=== PATIENT | male | born 1995 | race American Indian/Alaskan Native ===

== ENCOUNTER 2019-12-31 23:02 | Emergency (ER) | payer SELFPAY ==
[2019-12-31] MEDS ORDERED: MORPHINE 4 MG/ML SYR ONE (23:48)
[2019-12-31] MEDS ORDERED: TETANUS & DIPHTHERIA TOX,ADULT 0.5 ML VIAL ONE (23:49)
[2019-12-31] MEDS ORDERED: ONDANSETRON 4 MG/2 ML VIAL ONE (23:49)
[2020-01-01] MEDS ORDERED: NS 0.9% VIAL 10 ML ONE (01:13)
[2020-01-01] MEDS ORDERED: CEFAZOLIN SODIUM 1 GM/VIAL ONE (01:13)
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
[2020-01-01] MEDS ORDERED: IBUPROFEN 400 MG TAB ONE (01:30)
[2020-01-01 02:28] VITALS: BP 144/92; TEMP 98.9; O2SAT 95
--- NOTE | 2020-01-01 11:50 | RAD REPORT ---
EXAM DESCRIPTION: RAD -Hand Left 3 View - 01/01/2020 12:06 am CLINICAL HISTORY: Left hand pain status post injury FINDINGS: Comminuted mildly displaced fractures involve the second and third proximal phalanges. The second proximal phalanx fracture extends intraarticularly. Nondisplaced fracture third distal phalanx Nondisplaced fracture forth proximal phalanx No dislocation
--- NOTE | 2020-01-01 12:25 | RAD REPORT ---
EXAM DESCRIPTION: [place] Single View01/01/2020 12:07 am CLINICAL HISTORY: Chest pain COMPARISON: none FINDINGS: The lungs appear clear of acute infiltrate. The heart is normal size IMPRESSION: No acute abnormalities displayed
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
== END 2020-01-01 02:20 | disposition home or self-care (01) ==
LOC: ER 23:02
PROC: 0PSVXZZ Reposition Left Finger Phalanx, External Approach (ICD-10-PCS; principal; 2020-01-01)
DX: S62.611A Displaced fracture of proximal phalanx of left index finger, initial encounter for closed fracture (principal); S62.613A Displaced fracture of proximal phalanx of left middle finger, initial encounter for closed fracture; S62.645A Nondisplaced fracture of proximal phalanx of left ring finger, initial encounter for closed fracture; V86.59XA Driver of other special all-terrain or other off-road motor vehicle injured in nontraffic accident, initial encounter
CPT/HCPCS: 70450; 71045; 71250; 72125; 90714; 96374; 99284; J0690; J2405